=== PATIENT | male | born 1970 | race American Indian/Alaskan Native ===

== ENCOUNTER 2017-04-20 11:21 | Day surgery (SDC) | payer BC ==
[~2017-04-20 11:21] MED LIST: IOPIDINE ONE; IOPIDINE OS ONE; MYDRIACYL ONE; MYDRIACYL OS ONE; NEOFRIN ONE; NEOFRIN OS ONE
[2017-04-20] MEDS ORDERED: MYDRIACYL OS ONE (11:44)
[2017-04-20] MEDS ORDERED: IOPIDINE OS ONE (11:44)
[2017-04-20] MEDS ORDERED: NEOFRIN OS ONE (11:44)
[2017-04-20 12:22] VITALS: BP 120/78
== END 2017-04-20 11:22 | disposition home or self-care (01) ==
LOC: OR 11:21
PROVIDERS: ATTEND Specialist
DX: H26.492 Other secondary cataract, left eye (principal)